=== PATIENT | male | born 1965 | race Two or more races ===

== ENCOUNTER 2019-10-17 12:50 | Emergency (ER) | payer OTHER ==
[~2019-10-17] VITALS: Ht 177.8 cm; Wt 81.6 kg
[2019-10-17] MEDS ORDERED: ORAPRED ODT10 MG (13:25)
[2019-10-17] MEDS ORDERED: SYMBICORT 16010.2 GM (13:26)
[2019-10-17] MEDS ORDERED: SKELAXIN800 MG PO (15:00)
[2019-10-17] MEDS ORDERED: NAPROXEN500 MG PO (15:00)
[2019-10-17] MEDS ORDERED: TESSALON PERLE100 MG PO (15:01)
== END 2019-10-17 15:10 | disposition home or self-care (01) ==
LOC: ER 12:50
DX: M79.18 Myalgia, other site (principal); R05 Cough

== ENCOUNTER 2019-12-11 07:44 | Emergency (ER) | payer OTHER ==
[~2019-12-11] VITALS: Ht 177.8 cm; Wt 117.9 kg
[~2019-12-11 07:44] MED LIST: NAPROXEN500 MG PO; ORAPRED ODT10 MG; SKELAXIN800 MG PO; SYMBICORT 16010.2 GM; TESSALON PERLE100 MG PO
== END 2019-12-11 11:20 | disposition home or self-care (01) ==
LOC: ER 07:44
DX: B33.8 Other specified viral diseases (principal); J22 Unspecified acute lower respiratory infection

== ENCOUNTER 2020-03-09 08:05 | Outpatient (CLI) | payer OTHER | END 2020-03-09 08:14 | disposition home or self-care (01) | LOC: TOM 08:05 | PROVIDERS: ATTEND Internal Medicine | DX: I10 Essential (primary) hypertension (principal); M54.5 Low back pain; E03.8 Other specified hypothyroidism; E78.89 Other lipoprotein metabolism disorders; E11.51 Type 2 diabetes mellitus with diabetic peripheral angiopathy without gangrene; E66.8 Other obesity; Z20.828 Contact with and (suspected) exposure to other viral communicable diseases; Z03.818 Encounter for observation for suspected exposure to other biological agents ruled out; R09.1 Pleurisy ==